=== PATIENT | female | born 1975 | race Caucasian/White ===

== ENCOUNTER → 2024-01-13 11:30 | Outpatient (REF) | payer BC, SELFPAY | LOC: RAD 11:30 | PROVIDERS: ATTENDING PHYSICIAN Physician Assistant Medical | DX: M25.562 Pain in left knee (principal) | CPT/HCPCS: 73564 ==

== ENCOUNTER → 2024-02-24 11:16 | Outpatient (REF) | payer BC, SELFPAY | LOC: RCS 11:16 | PROVIDERS: ATTENDING PHYSICIAN Orthopaedic Surgery; FAMILY PHYSICIAN Obstetrics & Gynecology Gynecology | DX: M23.312 Other meniscus derangements, anterior horn of medial meniscus, left knee (principal) | CPT/HCPCS: 93005 ==